=== PATIENT | male | born 1965 | race Caucasian/White ===

== ENCOUNTER 2019-06-13 19:14 | Emergency (ER) | payer BC, SELFPAY ==
[2019-06-13 19:15] VITALS: BP 121/75; PULSE 86; RESP 15; TEMP 36.9; BMI 25.2
--- NOTE | 2019-06-13 19:35 | CT_ITS ---
STUDY: CT ABDOMEN AND PELVIS WITH CONTRAST REASON FOR EXAM: Male, 53 years old. Abdominal pain RADIATION DOSAGE (If Supplied By Facility): CTDIvol = ( 14.91 ) mGy, DLP = ( 1014.64 ) mGycm TECHNIQUE: Transaxial images were obtained from the dome of the diaphragm to the symphysis pubis without oral contrast. 100 IV/Oral Isovue 300 was administered. Sagittal and coronal images were reconstructed. Individualized dose optimization techniques were used for this CT. COMPARISON: None. FINDINGS: The visualized lung bases are unremarkable. The visualized portions of the heart are within normal limits. Normal liver. There has been a cholecystectomy. Bile ducts are normal in caliber. Normal spleen. Normal pancreas. Normal bilateral adrenal glands. There has been a partial RIGHT nephrectomy. Normal left kidney. There is generalized mucosal edema and thickening of the entire colon suggesting nonspecific colitis. This could be infectious or inflammatory. There is NO specific evidence of diverticulitis or ischemic bowel injury. There is NO bowel perforation or obstruction. The stomach, small bowel and appendix are normal. Normal abdominal aorta. Normal inferior vena cava. Normal retroperitoneum. Normal urinary bladder. There is NO ascites, free air, abscess or adenopathy. Normal abdominal wall. There has been lower back surgery. CT/Abdomen/Pelvis WITH Contrast IMPRESSION: There has been a cholecystectomy. Bile ducts are normal in caliber. There has been a partial RIGHT nephrectomy. Normal left kidney. There is generalized mucosal edema and thickening of the entire colon suggesting nonspecific colitis. This could be infectious or inflammatory. There is NO specific evidence of diverticulitis or ischemic bowel injury. There is NO bowel perforation or obstruction. The stomach, small bowel and appendix are normal. There is NO ascites, free air, abscess or adenopathy. Electronically Signed: Jp Porras MD at 21:55 EDT , Service support ,
--- NOTE | 2019-06-13 19:36 | ED.VIS.GEN ---
History of Present Illness Chief Complaint: Abd Pain Informant: Patient Onset: Days Context: Gradual Onset Quality: Aching Location: Lower abdomen Current Severity: Mild Maximum Severity: Moderate Narrative: Patient presents with a 3-day history of lower abdominal pain and cramping. He has had a fever up to 103. Last fever this morning was 101. Patient states he is still having small bowel movements but mostly passing mucus. He does have a history of diverticulitis with similar symptoms. Past Medical History - Allergies and Home Meds Allergies/Adverse Reactions: Allergies No Known Allergies Allergy (Verified 06/13/19 19:18) Primary Care Physician: Lonnie Bustillo MD [Primary Care Provider] - Prior records reviewed: Yes Past Medical History: - - Reviewed Surgical History: cholecystectomy, - - Partial right nephrectomy Lives: With Family Smoking Status: Former smoker Review of Systems General: Reports: Fever Eyes: Denies: Visual changes - bilaterally ENT: Denies: Bilateral ear pain Cardiovascular: Denies: Chest pain Respiratory: Denies: Dyspnea, Cough Gastrointestinal: Reports: Abdominal pain, Diarrhea. Denies: Nausea, Vomiting Genitourinary: Denies: Dysuria Musculoskeletal: Denies: Myalgias, Arthralgias, Back pain Neurological: Denies: Headache Psych: Denies: Depression Hematologic: Denies: Easy bruising Allergy: Denies: Uticaria Physical Exam Vital Signs/Narrative: Vital Signs Temp Pulse Resp BP 06/13/19 19:15 98.4 F 86 15 121/75 H Inital Vital Signs reviewed: Yes General: Well nourished, Well developed ENT: Moist mucous membranes Neck: Supple Cardiovascular: Regular rate, Regular rhythm Respiratory: No distress, CTA bilaterally Abdomen: Soft, Tender - Mild suprapubic tenderness., Hypoactive bowel sounds. Negative for: Guarding, Rebound tenderness Back: Nontender Extremities: Nontender Skin: Normal color Neurological: Alert, Oriented x3 Psychological: Normal affect Diagnostic/Tx/Re-eval Impressions Abdomen/Pelvis CT 06/13/19 19:35 IMPRESSION: There has been a cholecystectomy. Bile ducts are normal in caliber. There has been a partial RIGHT nephrectomy. Normal left kidney. There is generalized mucosal edema and thickening of the entire colon suggesting nonspecific colitis. This could be infectious or inflammatory. There is NO specific evidence of diverticulitis or ischemic bowel injury. There is NO bowel perforation or obstruction. The stomach, small bowel and appendix are normal. There is NO ascites, free air, abscess or adenopathy. Electronically Signed: Jp Porras MD at 21:55 EDT , Service support , 06/13/19 19:35 Abdomen/Pelvis WITH Contrast [CT] Stat Laboratory Results 06/13/19 06/13/19 06/13/19 19:45 19:45 21:15 WBC 8.0 RBC 5.06 Hgb 15.2 Hct 42.9 MCV 84.8 MCH 30.0 MCHC 35.4 RDW Std Deviation 35.6 RDW Coeff of Usman 11.7 Plt Count 180 MPV 9.5 Immature Gran % (Auto) 0.200 Neut % (Auto) 85.6 H Lymph % (Auto) 6.6 L [place] % (Auto) 7.5 Eos % (Auto) 0.0 Baso % (Auto) 0.1 Absolute Neuts (auto) 6.9 Absolute Lymphs (auto) 0.53 L Nucleated RBC % 0 Differential Comment SEE COMMENT Platelet Estimate ADEQUATE RBC Morphology NORM C+C Sodium 135 L Potassium 3.8 Chloride 103 Carbon Dioxide 25.0 Anion Gap 7 BUN 17 Creatinine 1.48 H Estim Creat Clear Calc 60.29 Est GFR (MDRD) Af Amer 64 Est GFR (MDRD) Non-Af 53 L BUN/Creatinine Ratio 11.5 Glucose 141 H Calcium 9.2 Urine Color Yellow Urine Clarity Clear Urine pH 6.0 Ur Specific [place] 1.015 Urine Protein 30 H Urine Glucose (UA) Normal Urine Ketones Negative Urine Occult Blood 10 H Urine Nitrite Negative Urine Bilirubin Negative Urine Urobilinogen Normal Ur Leukocyte Esterase Negative Urine RBC 0-5 SEEN Urine WBC 0-5 SEEN Ur Squamous Epith Cells 0 SEEN Ur Renal Epithelial Cell 0-5 SEEN Calcium Oxalate Crystal RARE Urine Bacteria 0 SEEN Hyaline Casts 25-50 SEEN Fine Granular Casts 0-5 SEEN Urine Mucus 2+ - Medical Decision Making Patient was given morphine and Zofran for pain. Test results were discussed with patient and at bedside. I believe his colitis is infectious in nature. He does not have exam findings consistent with ischemic colitis. He will be given Cipro and Flagyl, first doses here. He is referred to Dr. Calabretta for follow-up as he may require colonoscopy once his acute infection is cleared. He was given return instructions. ED Disposition - Plan for ED Patient: Disposition: Home or Assisted Living Diagnosis: Colitis Instructions: Bacterial Gastroenteritis Prescriptions: Ciprofloxacin [Cipro] 500 mg PO BID #14 tablet metroNIDAZOLE [Flagyl] 500 mg PO Q6H #40 tablet Referrals: Lonnie Bustillo MD [Primary Care Provider] - Diego Cabello MD [STAFF PHYSICIAN] - 1-2 Weeks
[2019-06-13] MEDS: Morphine 4 MG/ML Syringe IV ×2 (19:43→21:18)
[2019-06-13] MEDS: Ondansetron 4 MG/2 ML Vial IV (19:43)
[2019-06-13] MEDS: 0.9% Normal Saline 1,000 ML 150 ML IV (19:46)
[2019-06-13 19:52] LABS: Absolute Lymphocyte Count 0.53 X10^3/uL (0.83-4.51); Absolute Neutrophil Count 6.9 X10^3/uL (2.0-7.7); Basophil# 0.01 X10^3/uL; Basophil% 0.1 % (0-1); Hematocrit 42.9 % (40-54); Hemoglobin 15.2 g/dL (13.0-16.5); Lymphocyte # 0.53 X10^3/ul (4.0); Lymphocyte % 6.6 % (19-41); Mean Corp Hgb Conc 35.4 g/dL (32-36); Mean Corpuscular Volume 84.8 fL (80-94); Mean Platelet Vol. 9.5 fl (6.2-12.0); Monocyte% 7.5 % (0-10); NRBC Flagged by Analyzer 0 % (0-5); Neutrophil # 6.86 X10^3/uL (2.7-7.7); Neutrophil % 85.6 % (47-70); POSITIVE DIFFERENTIAL YES; Platelet Count 180 K/mm3 (150-450); RBC Distribution Width CV 11.7 % (11.6-14.6); RBC Distribution Width SD 35.6 fl (35.1-43.9); Red Blood Count 5.06 M/mm3 (4.6-6.2)
[2019-06-13 20:05] LABS: Anion Gap 7 (5-15); BUN 17 mg/dL (7-18); BUN/Creat Ratio 11.5 RATIO (10-20); Calcium,Total 9.2 mg/dL (8.5-10.1); Chloride 103 mmol/L (98-107); Creatinine, Serum 1.48 mg/dL (0.70-1.30); EST Glomerular Filtration Rate 53 mL/min (>60); Est Glom Filt Rate - Afr Amer 64 mL/min (>60); Estimated Creatinine Clearance 60.29 ml/min; Glucose 141 mg/dL (74-106); Potassium 3.8 mmol/L (3.5-5.1); Sodium Level 135 mmol/L (136-145)
[2019-06-13 20:08] LABS: Differential Indicated SCAN CRITERIA MET
[2019-06-13 20:36] LABS: Platelet Estimate ADEQUATE (ADEQ)
[2019-06-13 20:37] LABS: Red Cell Morphology NORM C+C NORMAL (NORM C&C)
[2019-06-13] MEDS: proMETHazine 25 MG/ML Syringe 6.25 MG IV (21:18)
[2019-06-13 21:19] LABS: Bacteria 0 SEEN /hpf (None Seen); Squamous Epithelial Cells - UA 0 SEEN /hpf (0-5)
[2019-06-13 21:20] LABS: Color, Urine Yellow (Yellow); Glucose, Dipstick Normal (Normal); Ketone-Dipstick Negative (Negative); Leukocyte Esterase-Dipstick Negative /ul (Negative); Nitrite-Dipstick Negative (Negative); Occult Blood-Urine 10 /ul (Negative); Protein-Dipstick 30 mg/dl (Negative); Specific Gravity, Urine 1.015 (1.002-1.030); Urine Bilirubin Dipstick Negative (Negative); Urine Clarity Clear (Clear); Urine Urobilinogen Normal (Normal)
[2019-06-13 21:29] LABS: Mucous, Urine 2+ /hpf (<or=2+)
[2019-06-13 21:30] LABS: Calcium Oxalate Crystals Ur RARE /hpf (<or=2+)
[2019-06-13 21:31] LABS: Hyaline Cast 25-50 SEEN /lpf (0-5)
[2019-06-13 21:32] LABS: Fine Granular Cast- Urine 0-5 SEEN /lpf (0-5)
[2019-06-13 21:34] LABS: Renal Epithelial Cells 0-5 SEEN /hpf (0-5); White Blood Cells 0-5 SEEN /hpf (0-5)
[2019-06-13 21:36] LABS: Red Blood Cells-Urine 0-5 SEEN /hpf (0-5)
[2019-06-13] MEDS: metroNIDAZOLE 500 MG Tablet PO (22:18)
[2019-06-13] MEDS: Ciprofloxacin 500 MG Tablet PO (22:18)
--- NOTE | 2019-06-13 22:21 | ED.DEP ---
ED Disposition - Plan for ED Patient: Disposition: Home or Assisted Living Diagnosis: Colitis Instructions: Bacterial Gastroenteritis Prescriptions: Ciprofloxacin [Cipro] 500 mg PO BID #14 tab Prescription Printed metroNIDAZOLE [Flagyl] 500 mg PO Q6H #40 tab Prescription Printed Ondansetron [Zofran Odt] 4 mg PO Q8H PRN PRN #10 tab PRN Reason: Nausea Prescription Printed Referrals: Diego Cabello MD [STAFF PHYSICIAN] - 1-2 Weeks Lonnie Bustillo MD [Primary Care Provider] -
[2019-06-13 22:26] VITALS: BP 117/77; PULSE 73; PULSE 74; RESP 16; RESP 17; O2SAT 93; O2SAT 96
== END 2019-06-13 23:11 | disposition home or self-care (01) ==
PROVIDERS: Emergency Provider Emergency Medicine; Family Provider Family Medicine; PCP Family Medicine
DX: K52.9 Noninfective gastroenteritis and colitis, unspecified (principal); Z87.19 Personal history of other diseases of the digestive system; Z90.5 Acquired absence of kidney; Z90.49 Acquired absence of other specified parts of digestive tract; Z87.891 Personal history of nicotine dependence
CPT/HCPCS: 74177; 80048; 81001; 85025; 96361; 96374; 96375; 96376; 99283; J7030; Q9967; J2405

== ENCOUNTER 2020-05-21 14:52 | Emergency (ER) | payer BC, SELFPAY ==
[2020-05-21 14:56] VITALS: BP 151/64; PULSE 76; RESP 18; TEMP 36.2; O2SAT 96; BMI 26.5
--- NOTE | 2020-05-21 15:13 | ED.VISSUMM ---
- ER Visit Summary Date of Service: 05/21/20 Chief Complaint: Laceration History of Present Illness: The patient is a [address] Tello. Patient is right-hand dominant. He got his right small finger caught between a tractor and a fence post. He has a throbbing pain is 1010 at worst and 7-10 currently. Is worsened by movement relieved by rest. He denies any paresthesias. He is unsure when his last tetanus shot was. Physical Examination: Vitals: Stable. Afebrile. General: Well-nourished and well-developed. Head: Normocephalic atraumatic. Neck: Supple, no lymphadenopathy. No JVD. Nontender. Cardiovascular: Regular rate and rhythm. No murmurs. Respiratory: No respiratory distress. Clear to auscultation bilaterally. Abdominal: Soft, nontender, nondistended, normal bowel sounds. No guarding, rebound, or peritoneal signs. Back: Nontender. Extremities: The lateral half of the pad of the distal phalanx of his right fifth finger has been amputated. There is no exposed bone. The nailbed is not involved. Skin: Normal color, no rash. Neurologic: Alert and oriented ?3. Cranial nerves II through XII are intact. Normal strength and sensation. Psych: Normal affect. Test Results: Clinical Impression(s) from Imaging Studies Finger X-Ray 05/21/20 15:31 IMPRESSION: Soft tissue injury of the fifth digit. No fracture or malalignment. Electronically Signed: Zackery Wynn MD ([place]) at 15:51 EDT , Service support , Emergency Department Course and Treatment: Patient had his tetanus updated. He is given morphine IM. He had a digital block performed with bupivacaine. He had a dressing placed. Gelfoam was used to control the bleeding. Treatment Plan: Patient was discussed with Dr. Graf who will see him in the office tomorrow. The patient will be discharged with [place]. Return to the emergency department for any worsening symptoms. Disposition: To home in improved and stable condition. Impression: 1. 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 This note was generated with [employer] software. It may contain incorrect words, spelling, and punctuation that were not noted in review of the chart prior to signing ED Disposition - Plan for ED Patient: Disposition: Home or Assisted Living Instructions: ED Finger Tip Amputation Open Treatment Prescriptions: Hydrocodone Bitart/Apap 5-325 [[place] 5MG-325MG] 1 tab PO Q4H PRN PRN 2 Days #10 tab PRN Reason: Pain Prescription Printed Referrals: Louie Graf MD [STAFF PHYSICIAN] - 1 Day for another exam
--- NOTE | 2020-05-21 15:31 | RAD_ITS ---
STUDY: X-RAY - RIGHT HAND, ATTENTION FIFTH FINGER REASON FOR EXAM: Male, 54 years old. RIGHT 5TH DIGIT LACERATION TO DISTAL END OF DIGIT TECHNIQUE: 3 view(s) of the finger were obtained. COMPARISON: None. FINDINGS: Normal metacarpal head. Normal metacarpophalangeal joint. Normal proximal phalanx. Normal middle phalanx. Normal distal phalanx. Normal proximal interphalangeal joint. Normal distal interphalangeal joint. There is soft tissue injury/laceration of the distal fifth digit. RAD/Finger(s) Min 2 Views IMPRESSION: Soft tissue injury of the fifth digit. No fracture or malalignment. Electronically Signed: Zackery Wynn MD ([place]) at 15:51 EDT , Service support ,
[2020-05-21] MEDS: Diphth,Pertuss(Acell),Tet Vac 0.5 ML Vial IM (15:36)
[2020-05-21] MEDS: morphine 8 MG/ML Syringe IM (15:36)
[2020-05-21] MEDS: Ondansetron ODT 4 MG Tablet PO (15:37)
[2020-05-21] MEDS: Bupivacaine Mpf 0.5% 30 ML VIAL INFILT (15:37)
[2020-05-21 17:53] VITALS: BP 116/79; PULSE 78; RESP 16; O2SAT 99
== END 2020-05-21 17:57 | disposition home or self-care (01) ==
LOC: ED 16:41
PROVIDERS: Emergency Provider Emergency Medicine; PCP Family Medicine
DX: S68.126A Partial traumatic metacarpophalangeal amputation of right little finger, initial encounter (principal); W23.0XXA Caught, crushed, jammed, or pinched between moving objects, initial encounter; Y93.9 Activity, unspecified; Y92.9 Unspecified place or not applicable
CPT/HCPCS: 73140; 90715; 96372; 99283